=== PATIENT | female | born 1985 | race Caucasian/White ===

== ENCOUNTER 2019-10-30 10:27 | Emergency (ER) | payer SELFPAY ==
[2019-10-30 11:58] LABS: Absolute Lymphocytes (CBC) 0.9 K/uL (0.7-4.9); Basophils % 0.7 % (0-1.3); Hematocrit 40.9 % (36.0-45.0); Lymphocytes % 17.3 % (15.3-44.8); MPV 8.6 fL (7.6-11.3); RBC Red Blood Cell Count 4.54 M/uL (3.86-4.86)
[2019-10-30 12:30] LABS: BUN Blood Urea Nitrogen 10 mg/dL (7-18); Bicarbonate 26 mmol/L (21-32); Glucose Level 93 mg/dL (74-106); HCG, Quantitative 19338 mIU/mL (1-3); Potassium 4.5 mmol/L (3.5-5.1); Sodium Level 143 mmol/L (136-145)
--- NOTE | 2019-10-30 13:27 | EDPHYS ---
Physician Documentation [facility] Name: Simran Walker Age: 34 yrs Sex: Female : 1985 Arrival Date: 10/30/2019 Time: 10:30 Bed 14 Private MD: ED Physician Chriss Gomez HPI: 10/29 10:38 This 34 yrs old Female presents to ER via Unassigned with complaints of Vaginal kb Bleeding, + Preg <12wks. 10:38 The patient presents to the emergency department with abdominal pain, of the suprapubic kb area, right lower quadrant and left lower quadrant, that started this morning, described as crampy, vaginal bleeding, that is moderate. The estimated gestational age is 6 weeks. course: care: none, Leakage of Fluid: none appreciated, Ultrasound: the patient has not had an ultrasound, Risk/complications: no obvious risks or complications are appreciated. Previous pregnancies: in previous pregnancies patient has had. Associated signs and symptoms: Pertinent positives: abdominal pain, nausea, vaginal bleeding, Pertinent negatives: fever, vomiting. The patient has not experienced similar symptoms in the past. The patient has not recently seen a physician. Pt reports she woke up feeling lightheaded with nausea. States she went to the restroom and had vaginal bleeding. Now complaining of abd cramping. . 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 - Social history:: Smoking status: Patient/guardian denies using tobacco. ROS: 10:38 Constitutional: Negative for fever, chills, and weight loss, Neck: Negative for injury, kb pain, and swelling, Cardiovascular: Negative for chest pain, palpitations, and edema, Respiratory: Negative for shortness of breath, cough, wheezing, and pleuritic chest pain, Back: Negative for injury and pain, MS/Extremity: Negative for injury and deformity, Skin: Negative for injury, rash, and discoloration, Neuro: Negative for headache, weakness, numbness, tingling, and seizure. 10:38 Abdomen/GI: Positive for nausea, abdominal cramps. 10:38 : Positive for vaginal bleeding. Exam: 10:38 Constitutional: This is a well developed, well nourished patient who is awake, alert, kb and in no acute distress. Head/Face: Normocephalic, atraumatic. ENT: Nares patent. No nasal discharge, no septal abnormalities noted. Tympanic membranes are normal and external auditory canals are clear. Oropharynx with no redness, swelling, or masses, exudates, or evidence of obstruction, uvula midline. Mucous membranes moist. Neck: Trachea midline, no thyromegaly or masses palpated, and no cervical lymphadenopathy. Supple, full range of motion without nuchal rigidity, or vertebral point tenderness. No Meningismus. Chest/axilla: Normal chest wall appearance and motion. Nontender with no deformity. No lesions are appreciated. Cardiovascular: Regular rate and rhythm with a normal S1 and S2. No gallops, murmurs, or rubs. Normal PMI, no JVD. No pulse deficits. Respiratory: Lungs have equal breath sounds bilaterally, clear to auscultation and percussion. No rales, rhonchi or wheezes noted. No increased work of breathing, no retractions or nasal flaring. Back: No spinal tenderness. No costovertebral tenderness. Full range of motion. Skin: Warm, dry with normal turgor. Normal color with no rashes, no lesions, and no evidence of cellulitis. MS/ Extremity: Pulses equal, no cyanosis. Neurovascular intact. Full, normal range of motion. Neuro: Awake and alert, GCS 15, oriented to person, place, time, and situation. Cranial nerves II-XII grossly intact. Motor strength 5/5 in all extremities. Sensory grossly intact. Cerebellar exam normal. Normal gait. 10:38 Abdomen/GI: Inspection: obese Bowel sounds: normal, in all quadrants, Palpation: soft, in all quadrants, mild abdominal tenderness, in the suprapubic area, right lower quadrant and left lower quadrant. Vital Signs: 10:41 BP 124 / 84; Pulse 83; Resp 16; Temp 97.2; Pulse Ox 100% on R/A; Weight 112.04 kg (R); aj1 Height 5 ft. 4 in. (162.56 cm) (R); Pain 5/10; 12:28 BP 108 / 77; Pulse 84; Resp 17; Pulse Ox 100% on R/A; mh5 13:27 BP 125 / 75; Pulse 82; Resp 18; Pulse Ox 100% on R/A; aj1 10:41 Body Mass Index 42.40 (112.04 kg, 162.56 cm) aj1 MDM: 10:35 Patient medically screened. kb 10:42 Differential diagnosis: threatened Ab, subchorionic hematoma. Data reviewed: vital kb signs, nurses notes. Data interpreted: Pulse oximetry: on room air is 100 %. Interpretation: normal. 13:26 Counseling: I had a detailed discussion with the patient and/or guardian regarding: the kb historical points, exam findings, and any diagnostic results supporting the discharge/admit diagnosis, lab results, radiology results, the need for outpatient follow up, an OB/Gyne specialist, to return to the emergency department if symptoms worsen or persist or if there are any questions or concerns that arise at home. 10/29 10:57 Order name: Urine Dipstick--Ancillary (enter results) ms 10/29 10:57 Order name: Urine --Ancillary (enter results) ms 10/29 11:17 Order name: Quantitative Hcg; Complete Time: 12:38 kb 10/29 11:17 Order name: Abo/rh Typing; Complete Time: 12:28 kb 10/29 11:17 Order name: Basic Metabolic Panel; Complete Time: 12:38 kb 10/29 11:17 Order name: CBC with Diff; Complete Time: 12:00 kb 10/29 10:37 Order name: Urine Dipstick-Ancillary (obtain specimen); Complete Time: 10:55 kb 10/29 10:37 Order name: Urine Test (obtain specimen); Complete Time: 10:55 kb 10/29 11:17 Order name: IV Saline Lock; Complete Time: 11:52 kb 10/29 11:17 Order name: Labs collected and sent; Complete Time: 11:53 kb 10/29 11:17 Order name: NPO; Complete Time: 11:53 kb 10/29 12:08 Order name: US Transvaginal Ob; Complete Time: 13:37 kb Administered Medications: No medications were administered Disposition: 17:00 Co-signature as Attending Physician, Chriss Gomez MD. rn Disposition: 10/30/19 13:26 Discharged to Home. Impression: Less than 8 weeks gestation of , Threatened . - Condition is Stable. - Discharge Instructions: First Trimester of , [id number], Threatened Miscarriage, [id number]. - Medication Reconciliation Form, Thank You Letter, Antibiotic Education, Prescription Opioid Use form. - Follow up: Emergency Department; When: As needed; Reason: Worsening of condition. Follow up: Private Physician; When: 2 - 3 days; Reason: Recheck today's complaints, Continuance of care, Re-evaluation by your physician. Signatures: Dispatcher [employer] EDKendra Jones, KAILEE-C HOSPITAL SECURITY OFFICER-Olga Wiseman RN RN aj1 Chriss Gomez MD MD rn mds coordinator: (The following items were deleted from the chart) 10:42 10:38 Abdomen/GI: Inspection: obese Bowel sounds: normal, in all quadrants, Palpation: kb mild abdominal tenderness, in the suprapubic area, right lower quadrant and left lower quadrant, kb 13:49 13:26 10/30/2019 13:26 Discharged to Home. Impression: Less than 8 weeks gestation of aj1 ; Threatened . Condition is Stable. Forms are Medication Reconciliation Form, Thank You Letter, Antibiotic Education, Prescription Opioid Use. Follow up: Emergency Department; When: As needed; Reason: Worsening of condition. Follow up: Private Physician; When: 2 - 3 days; Reason: Recheck today's complaints, Continuance of care, Re-evaluation by your physician. kb
--- NOTE | 2019-10-30 13:27 | ER ---
Nurse's Notes [facility] Name: Simran Walker Age: 34 yrs Sex: Female : 1985 Arrival Date: 10/30/2019 Time: 10:30 Bed 14 Private MD: Diagnosis: Less than 8 weeks gestation of ;Threatened Presentation: 10/29 10:41 Chief complaint: Patient states: She is 6 weeks , she woke up this morning not aj1 feeling well and when she went to the bathroom she noticed vaginal bleeding. Patient also reports suprapubic pain and cramping. Coronavirus screen: The patient has NOT traveled to a country currently being monitored by the CDC within the last 14 days. Ebola Screen: Patient denies travel to an Ebola-affected area in the 21 days before illness onset. Initial Sepsis Screen: Does the patient meet any 2 criteria? No. Patient's initial sepsis screen is negative. Does the patient have a suspected source of infection? No. Patient's initial sepsis screen is negative. Risk Assessment: Do you want to hurt yourself or someone else? Patient reports no desire to harm self or others. 10:41 Method Of Arrival: Ambulatory aj1 10:41 Acuity: RON 3 aj1 Triage Assessment: 10:44 General: Appears in no apparent distress. comfortable, Behavior is calm, cooperative, aj1 appropriate for age. Pain: Complains of pain in left lower quadrant and right lower quadrant and suprapubic area Pain does not radiate. Pain currently is 5 out of 10 on a pain scale. Quality of pain is described as crampy, Is intermittent. : Reports vaginal bleeding that is bright red. 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 - Social history:: Smoking status: Patient/guardian denies using tobacco. Screenin:46 Abuse screen: Denies threats or abuse. Denies injuries from another. Nutritional aj1 screening: No deficits noted. Tuberculosis screening: No symptoms or risk factors identified. 13:48 Fall Risk None identified. aj1 Assessment: 10:46 Obstetrical Assessment: Patient reports abdominal cramping. General: Appears in no aj1 apparent distress. comfortable, Behavior is calm, cooperative, appropriate for age. Pain: Complains of pain in left lower quadrant and right lower quadrant and suprapubic area Pain does not radiate. Pain currently is 5 out of 10 on a pain scale. Quality of pain is described as crampy, Is intermittent. Neuro: Level of Consciousness is awake, alert, obeys commands, Oriented to person, place, time, situation. Cardiovascular: Patient's skin is warm and dry. Respiratory: Airway is patent Respiratory effort is even, unlabored, Respiratory pattern is regular, symmetrical. GI: No signs and/or symptoms were reported involving the gastrointestinal system. : Reports vaginal bleeding that is bright red. EENT: No signs and/or symptoms were reported regarding the EENT system. Derm: No signs and/or symptoms reported regarding the dermatologic system. Skin is pink, warm \T\ dry. normal. Musculoskeletal: No signs and/or symptoms reported regarding the musculoskeletal system. Circulation, motion, and sensation intact. 11:45 Reassessment: Patient appears in no apparent distress at this time. No changes from aj1 previously documented assessment. Patient and/or family updated on plan of care and expected duration. Pain level reassessed. Patient is alert, oriented x 3, equal unlabored respirations, skin warm/dry/pink. 12:45 Reassessment: Patient and/or family updated on plan of care and expected duration. Pain aj1 level reassessed. General: Appears in no apparent distress. comfortable, Behavior is calm, cooperative, appropriate for age. Neuro: Level of Consciousness is awake, alert, obeys commands, Oriented to person, place, time. Cardiovascular: Patient's skin is warm and dry. Respiratory: Airway is patent Respiratory effort is even, unlabored, Respiratory pattern is regular, symmetrical. Derm: Skin is pink, warm \T\ dry. normal. 13:27 Reassessment: Patient appears in no apparent distress at this time. No changes from aj1 previously documented assessment. Patient and/or family updated on plan of care and expected duration. Pain level reassessed. Patient is alert, oriented x 3, equal unlabored respirations, skin warm/dry/pink. Vital Signs: 10:41 BP 124 / 84; Pulse 83; Resp 16; Temp 97.2; Pulse Ox 100% on R/A; Weight 112.04 kg (R); aj1 Height 5 ft. 4 in. (162.56 cm) (R); Pain 5/10; 12:28 BP 108 / 77; Pulse 84; Resp 17; Pulse Ox 100% on R/A; mh5 13:27 BP 125 / 75; Pulse 82; Resp 18; Pulse Ox 100% on R/A; aj1 10:41 Body Mass Index 42.40 (112.04 kg, 162.56 cm) aj1 ED Course: 10:30 Patient arrived in ED. ag5 10:35 Kend[facility] Gifford [facility]C [facility]. kb 10:35 Chriss Gomez MD is Attending Physician. kb 10:41 Olga Frankel, RN is Primary Nurse. aj1 10:43 Triage completed. aj1 10:44 Arm band placed on. aj1 10:46 Patient has correct armband on for positive identification. Bed in low position. Call aj1 light in reach. Side rails up X 1. 10:46 No provider procedures requiring assistance completed. aj1 11:15 Inserted saline lock: 22 gauge in right antecubital area, using aseptic technique. aj1 Blood collected. 13:18 Ultrasound completed. Patient tolerated well. Notified LEAD WEB APPLICATION DEVELOPER/PA . sg3 13:22 US Transvaginal Ob In Process Unspecified. EDMS 13:48 IV discontinued, intact, bleeding controlled, No redness/swelling at site. Pressure aj1 dressing applied. Administered Medications: No medications were administered Outcome: 13:26 Discharge ordered by . kb 13:48 Discharged to home ambulatory. aj1 13:48 Condition: good 13:48 Discharge instructions given to patient, Instructed on discharge instructions, follow up and referral plans. Demonstrated understanding of instructions, follow-up care. 13:49 Patient left the ED. aj1 Signatures: Dispatcher [employer] EDFL Kendra Gifford FNP-C FNP-Olga Wiseman RN RN aj1 Ayse Rushing [facility] Sushila Ko sg3 Karly, Ainsley ag5
--- NOTE | 2019-10-30 13:33 | RAD REPORT ---
EXAM DESCRIPTION: US - Transvaginal OB - 10/30/2019 1:21 pm CLINICAL HISTORY: with pelvic pain and vaginal bleeding COMPARISON: None. FINDINGS: The uterus measures 8 x 4 x 4 centimeters. Gestational sac measures 21 x 10 by millimeter s. A yolk sac is not seen. pole is not demonstrated Right and left ovary not well seen secondary to overlying bowel gas. An adnexal mass is not noted. No significant free fluid is seen. IMPRESSION: These findings may indicate a normal intrauterine in which the pole is n ot yet seen secondary to early gestation. Incomplete can also have this appearance. It is re commended that the patient have serial beta HCG levels and a followup endovaginal sonogram in 1 week for re-evaluation
[2019-10-30 13:59] VITALS: TEMP 97.2; O2SAT 100
[2019-10-30 14:02] VITALS: BP 125/75
[2019-10-30 20:13] LABS: Urine Blood NEGATIVE (NEG); Urine Glucose NEGATIVE (NEG); Urine Protein NEGATIVE (NEG); Urine Specific Gravity 1.025 (1.005-1.030)
== END 2019-10-30 13:49 | disposition home or self-care (01) ==
LOC: ER 10:27
DX: O20.0 Threatened abortion (principal); Z3A.01 Less than 8 weeks gestation of pregnancy; Z88.0 Allergy status to penicillin; Z88.2 Allergy status to sulfonamides; Z88.8 Allergy status to other drugs, medicaments and biological substances
CPT/HCPCS: 36415; 76817; 80048; 81003; 81025; 84702; 85025; 86900; 86901; 99283